=== PATIENT | male | born 1945 | race Caucasian/White ===

== ENCOUNTER 2017-10-01 23:51 | Inpatient (IN) | payer OTHER ==
[~2017-10-01] VITALS: Ht 182.9 cm; Wt 87.5 kg
[2017-10-02 00:16] LABS: BASOPHIL (%) 0.5 % (0-1); EOSINOPHIL (%) 2.8 % (0-5); EOSINOPHIL COUNT 0.2 K/uL (0-0.3); HEMATOCRIT 39.5 % (38.0-50.0); HEMOGLOBIN 14.2 G/DL (12.5-16.6); IMMATURE GRANULOCYTE (%) 0.4 % (0.0-0.7); LYMPHOCYTE (%) 38.4 % (15-42); LYMPHOCYTE COUNT 2.2 K/uL (1.0-2.8); MCH 32.1 PG (29.0-34.0); MCHC 35.9 G/DL (30.0-36.0); MCV 89.4 FL (86-99); MONOCYTE (%) 8.8 % (3-12); MONOCYTE COUNT 0.5 K/uL (0-0.8); NEUTROPHIL (%) 49.1 % (45-76); NEUTROPHIL COUNT 2.8 K/uL (1.8-6.4); PLATELET COUNT 193 K/uL (156-360); RBC DIS.WIDTH-CV 13.2 % (11.8-14.6); RBC DIS.WIDTH-SD 43.3 % (39-53); RED BLOOD COUNT 4.42 M/uL (4.00-5.50); WHITE BLOOD COUNT 5.7 K/uL (4.1-10.2)
[2017-10-02 00:24] LABS: CHLORIDE 108 mEq/L (99-109); POTASSIUM 3.3 mEq/L (3.7-5.4); PTT 31.8 SEC (25-37); SODIUM 141 mEq/L (136-147)
[2017-10-02 00:25] LABS: GLUCOSE 107 mg/dL (70-99)
[2017-10-02 00:29] LABS: CREATININE 0.8 mg/dL (0.6-1.3); GFR ESTIMATE (CALCULATED) > 59 mL/min/ (58.99-99999)
[2017-10-02 00:30] LABS: UREA NITROGEN (BUN) 16 mg/dL (9-23)
[2017-10-02] MEDS ORDERED: PANTOPRAZOLE SO40 MG PO (02:05)
[2017-10-02] MEDS ORDERED: RANITIDINE HCL150 MG PO (02:05)
[2017-10-02] MEDS ORDERED: ALPRAZOLAM0.25 M2 PO (02:06)
[2017-10-02] MEDS ORDERED: TRAMADOL HCL50 MG PO (02:06)
[2017-10-02] MEDS ORDERED: PRAVASTATIN SOD40 MG PO (02:07)
[2017-10-02] MEDS ORDERED: LYRICA50 MG PO (02:07)
[2017-10-02] MEDS ORDERED: ERGOCALCIF50000 UNIT PO (02:08)
[2017-10-02] MEDS ORDERED: TAMSULOSIN HCL0.4 MG PO (02:08)
[2017-10-02] MEDS ORDERED: MELOXICAM15 MG PO (02:09)
[2017-10-02] MEDS ORDERED: OLMESARTAN-HCT1 EACH PO (02:10)
[2017-10-02 02:11] LABS: HDL CHOLESTEROL 31 MG/DL (Desirable>=40); LDL CHOLESTEROL 135 mg/dL (Desirable<100); NON-HDL CHOLESTEROL 157 mg/dL (Desirable<160); TOTAL CHOLESTEROL 188 mg/dL (Desirable<200); TRIGLYCERIDES 109 MG/DL (Normal: <150)
[2017-10-02] MEDS ORDERED: LO-DOSE ASPIRIN81 M2 PO (02:11)
[2017-10-02] MEDS ORDERED: PROAIR HFA8.5 GM IH (02:11)
[2017-10-02] MEDS ORDERED: SYSTANE ULTRA 015 ML BOTH EYES (02:13)
[2017-10-02] MEDS ORDERED: XIIDRA1 EACH BOTH EYES (02:13)
[2017-10-02] MEDS ORDERED: OCUSOFT LID SC1 EACH TP (02:15)
[2017-10-02] MEDS ORDERED: CYANOCOBAL1000 MCG/2 IM (02:17)
[2017-10-02 03:17] VITALS: BP 159/92
[2017-10-02 07:41] VITALS: BP 139/87
[2017-10-02 12:09] VITALS: BP 143/86
[2017-10-02 12:23] LABS: HEMOGLOBIN A1c (GLYCOHEMOGLOB) 5.6 % (Below 5.7)
[2017-10-02 16:14] VITALS: BP 137/79
[2017-10-02 19:45] VITALS: BP 137/86
[2017-10-02 23:41] VITALS: BP 137/83
[2017-10-03 04:18] VITALS: BP 122/72
[2017-10-03 07:18] VITALS: BP 133/80
[2017-10-03 12:08] VITALS: BP 132/84
[2017-10-03 15:57] VITALS: BP 156/87
[2017-10-03 19:18] VITALS: BP 150/96
[2017-10-03 23:39] VITALS: BP 135/85
[2017-10-04 03:35] VITALS: BP 142/84
[2017-10-04 08:12] VITALS: BP 121/80
[2017-10-04] MEDS ORDERED: ADVANCED EYE R3.5 GM BOTH EYES (15:51)
[2017-10-04] MEDS ORDERED: ARTIFICIAL TEA3.5 G1 BOTH EYES (15:52)
[2017-10-04] MEDS ORDERED: HYDROCHLOROTH12.5 M3 PO (15:55)
[2017-10-04] MEDS ORDERED: GENTEAL TEARS 015 ML BOTH EYES (15:56)
[2017-10-04] MEDS ORDERED: COZAAR25 MG PO (15:58)
[2017-10-04] MEDS ORDERED: PEPCID20 MG PO (15:59)
[2017-10-04] MEDS ORDERED: HEPARIN SO5000 UNIT4 SC (16:00)
[2017-10-04] MEDS ORDERED: MICROZIDE12.5 M1 PO (16:08)
== END 2017-10-04 15:24 | DRG 57 ==
LOC: EME → EDBD 23:51 → EME 23:51 → EDOF 10-02 01:59 → 5SOUTH 10-02 01:59 → ENRESERV 10-02 02:04 → 5SOUTH 10-02 03:03
PROVIDERS: Emergency Medicine
DX: G81.94 Hemiplegia, unspecified affecting left nondominant side (principal); I69.354 Hemiplegia and hemiparesis following cerebral infarction affecting left non-dominant side; R51 Headache; R29.703 NIHSS score 3; E87.6 Hypokalemia; J44.9 Chronic obstructive pulmonary disease, unspecified; E53.8 Deficiency of other specified B group vitamins; E55.9 Vitamin D deficiency, unspecified; I10 Essential (primary) hypertension; E78.5 Hyperlipidemia, unspecified; I16.0 Hypertensive urgency; K21.9 Gastro-esophageal reflux disease without esophagitis; M19.90 Unspecified osteoarthritis, unspecified site; N40.0 Benign prostatic hyperplasia without lower urinary tract symptoms; G62.9 Polyneuropathy, unspecified; I69.392 Facial weakness following cerebral infarction; Z87.891 Personal history of nicotine dependence; Z88.6 Allergy status to analgesic agent
CPT/HCPCS: 70450; 70551; 80048; 80061; 82948; 83036; 85025; 85610; 85651; 85730; 86140; 93005; 94799; 99281; 99285; J1644; J2930

== ENCOUNTER 2017-10-04 10:42 | Inpatient (IN) | payer OTHER ==
[~2017-10-04] VITALS: Ht 182.9 cm; Wt 85.5 kg
[~2017-10-04 10:42] MED LIST: ALPRAZOLAM0.25 M2 PO; CYANOCOBAL1000 MCG/2 IM; ERGOCALCIF50000 UNIT PO; LO-DOSE ASPIRIN81 M2 PO; LYRICA50 MG PO; MELOXICAM15 MG PO; OCUSOFT LID SC1 EACH TP; OLMESARTAN-HCT1 EACH PO; PANTOPRAZOLE SO40 MG PO; PRAVASTATIN SOD40 MG PO; PROAIR HFA8.5 GM IH; RANITIDINE HCL150 MG PO; SYSTANE ULTRA 015 ML BOTH EYES; TAMSULOSIN HCL0.4 MG PO; TRAMADOL HCL50 MG PO; XIIDRA1 EACH BOTH EYES
[2017-10-04] MEDS ORDERED: ADVANCED EYE R3.5 GM BOTH EYES (15:51)
[2017-10-04] MEDS ORDERED: ARTIFICIAL TEA3.5 G1 BOTH EYES (15:52)
[2017-10-04] MEDS ORDERED: HYDROCHLOROTH12.5 M3 PO (15:55)
[2017-10-04] MEDS ORDERED: GENTEAL TEARS 015 ML BOTH EYES (15:56)
[2017-10-04 15:58] VITALS: BP 144/82
[2017-10-04] MEDS ORDERED: COZAAR25 MG PO (15:58)
[2017-10-04] MEDS ORDERED: PEPCID20 MG PO (15:59)
[2017-10-04] MEDS ORDERED: HEPARIN SO5000 UNIT4 SC (16:00)
[2017-10-04] MEDS ORDERED: MICROZIDE12.5 M1 PO (16:08)
[2017-10-04 23:43] VITALS: BP 132/76
[2017-10-05 04:33] VITALS: BP 136/81
[2017-10-05 09:12] LABS: HEMATOCRIT 41.3 % (38.0-50.0); HEMOGLOBIN 14.8 G/DL (12.5-16.6); MCH 32.3 PG (29.0-34.0); MCHC 35.8 G/DL (30.0-36.0); MCV 90.2 FL (86-99); PLATELET COUNT 218 K/uL (156-360); RBC DIS.WIDTH-CV 13.3 % (11.8-14.6); RED BLOOD COUNT 4.58 M/uL (4.00-5.50); WHITE BLOOD COUNT 8.7 K/uL (4.1-10.2)
[2017-10-05 09:21] LABS: ALBUMIN 4.3 g/dL (3.2-4.8); CHLORIDE 106 mEq/L (99-109); POTASSIUM 3.9 mEq/L (3.7-5.4); SODIUM 143 mEq/L (136-147)
[2017-10-05 09:23] LABS: GLUCOSE 95 mg/dL (70-99); TOTAL PROTEIN 6.6 g/dL (6.4-8.3)
[2017-10-05 09:25] LABS: TOTAL BILIRUBIN 0.7 mg/dL (0.0-1.0)
[2017-10-05 09:27] LABS: ALKALINE PHOSPHATASE 59 IU/L (3-129); CREATININE 0.9 mg/dL (0.6-1.3); GFR ESTIMATE (CALCULATED) > 59 mL/min/ (58.99-99999)
[2017-10-05 09:28] LABS: UREA NITROGEN (BUN) 21 mg/dL (9-23)
[2017-10-05 09:29] LABS: AST (GOT) 14 IU/L (2-34)
[2017-10-05 09:30] LABS: ALT (GPT) 28 IU/L (3-49)
[2017-10-05 14:58] VITALS: BP 138/81
[2017-10-06 05:24] VITALS: BP 147/89
[2017-10-06 16:25] VITALS: BP 104/71
[2017-10-07 04:22] VITALS: BP 127/73
[2017-10-07 15:18] VITALS: BP 120/76
[2017-10-08 03:58] VITALS: BP 143/81
[2017-10-08 15:18] VITALS: BP 116/70
[2017-10-09 06:16] VITALS: BP 102/68
[2017-10-09 15:56] VITALS: BP 101/63
[2017-10-10 05:18] VITALS: BP 109/54
[2017-10-10 15:24] VITALS: BP 105/67
[2017-10-11 05:29] VITALS: BP 113/62
[2017-10-11 15:06] VITALS: BP 102/60
[2017-10-12 04:06] VITALS: BP 104/67; BP 142/70
[2017-10-12 15:24] VITALS: BP 127/58
[2017-10-13 05:52] VITALS: BP 120/74
[2017-10-13 15:11] VITALS: BP 117/79
[2017-10-14 04:55] VITALS: BP 103/64
[2017-10-14 15:19] VITALS: BP 103/64
[2017-10-15 05:59] VITALS: BP 112/59
[2017-10-15 15:17] VITALS: BP 103/67
[2017-10-16 05:59] VITALS: BP 110/58
[2017-10-16 16:00] VITALS: BP 125/74
[2017-10-17 05:14] VITALS: BP 116/62
[2017-10-17 16:10] VITALS: BP 122/70
[2017-10-18 05:14] VITALS: BP 120/70
[2017-10-18 15:13] VITALS: BP 118/70
[2017-10-19 05:52] VITALS: BP 106/61
[2017-10-19 15:03] VITALS: BP 130/64
[2017-10-19 15:20] VITALS: BP 106/64
[2017-10-20 06:23] VITALS: BP 113/55
[2017-10-20 15:25] VITALS: BP 113/74
[2017-10-20] MEDS ORDERED: FINASTERIDE5 MG PO (16:49)
[2017-10-20] MEDS ORDERED: POLYETHYLENE GL17 GM PO (16:49)
[2017-10-21 04:56] VITALS: BP 131/58
[2017-10-21 16:05] VITALS: BP 118/78
== END 2017-10-21 17:20 | disposition home health service (06) | DRG 57 ==
LOC: 3WEST 10:42 → ENPENDDIS 10-21 → 3WEST 10-21 17:20
PROVIDERS: Physical Medicine & Rehabilitation Pain Medicine
PROC: F07M0ZZ Range of Motion and Joint Mobility Treatment of Musculoskeletal System - Whole Body (ICD-10-PCS; principal; 2017-10-04)
DX: I69.354 Hemiplegia and hemiparesis following cerebral infarction affecting left non-dominant side (principal); R26.81 Unsteadiness on feet; I10 Essential (primary) hypertension; J44.9 Chronic obstructive pulmonary disease, unspecified; M06.9 Rheumatoid arthritis, unspecified; I65.23 Occlusion and stenosis of bilateral carotid arteries; H91.90 Unspecified hearing loss, unspecified ear; E87.6 Hypokalemia; M54.5 Low back pain; R51 Headache; K59.00 Constipation, unspecified; E78.00 Pure hypercholesterolemia, unspecified; K21.9 Gastro-esophageal reflux disease without esophagitis; M47.26 Other spondylosis with radiculopathy, lumbar region; M51.36 Other intervertebral disc degeneration, lumbar region; M19.072 Primary osteoarthritis, left ankle and foot; E55.9 Vitamin D deficiency, unspecified; E53.8 Deficiency of other specified B group vitamins; N40.1 Benign prostatic hyperplasia with lower urinary tract symptoms; R35.1 Nocturia; M47.812 Spondylosis without myelopathy or radiculopathy, cervical region; F41.9 Anxiety disorder, unspecified; E78.5 Hyperlipidemia, unspecified; K22.70 Barrett's esophagus without dysplasia; Z60.2 Problems related to living alone
CPT/HCPCS: 80053; 85027; 94799; 97110 GO; 97530 GP; J1644